=== PATIENT | male | born 1960 ===

== ENCOUNTER 2024-07-20 12:02 | Inpatient (IN) | payer OTHER, SELFPAY ==
--- NOTE | ~2024-07-20 | CT_ITS ---
EXAMINATION: CT HEAD WITHOUT CONTRAST CLINICAL INFORMATION: od ?ams COMPARISON: None available. TECHNIQUE: Contiguous axial imaging was performed from the skull base to vertex without intravenous administration of contrast. This CT examination was performed using dose optimization techniques as appropriate, variously including the following: *Automated exposure control *Adjustment of mA and/or kV according to patient size (this includes techniques or standardized protocols for targeted exams where dose is matched to indication/reason for exam; i.e. extremities or head) *Use of iterative reconstruction technique DLP: 647 mGy-cm FINDINGS: No acute intracranial hemorrhage, mass effect, midline shift, hydrocephalus or herniation. Bilateral multifocal patchy and confluent deep periventricular white matter deep white matter and subcortical white matter hypodensities involving mostly the supratentorial compartment. Prominence of the extra-axial CSF spaces cerebral sulci and ventricles involving mostly the bifrontal bitemporal poles. Posterior cranial fossa contents demonstrated no acute hemorrhage or mass effect. Sellar/suprasellar region demonstrated no gross masses. Old traumatic deformity, left lamina preparation resulting in herniated extraconal fat without tethered extraocular muscle. Old traumatic deformities, nasal bones. Mucosal thickening, right maxillary sinus. Tympanic cavities and mastoid air cells are aerated. Probable prior medial right maxillary surgery. CT/CT head/brain wo IV con IMPRESSION: No acute intracranial hemorrhage. White matter disease. Bifrontal, bitemporal lobes atrophy. Electronically signed by: Humza Williamson MD 07/20/2024 03:32 PM EDT
--- NOTE | ~2024-07-20 | XR_ITS ---
CLINICAL HISTORY: Leukocytosis and fever 1 view chest x-ray Comparison: None Findings: Asymmetrically increased airspace opacity in the left lung. Bilateral interstitial coarsening and basilar congestion. Multiple remote right posterior rib fractures with associated pleural thickening/scarring. No pleural effusion or pneumothorax. IMPRESSION: 1. Bilateral interstitial and airspace opacities, more pronounced on the left. Findings may reflect bronchitis or potentially atypical bilateral bronchopneumonia. This document has been electronically signed by: Rogelio Díaz MD on 07/24/2024 20:24:49
--- NOTE | ~2024-07-20 | XR_ITS ---
EXAMINATION: XR FEMUR 2 VIEWS RIGHT HISTORY: wound COMPARISON: There are no prior studies available for comparison. FINDINGS: AP and lateral views of the right femur are submitted. Osseous mineralization is normal. There is no fracture or dislocation. The joint spaces are preserved. There are metallic coils in the soft tissues of the posteromedial thigh with surrounding soft tissue gas. XR/XR femur RT 2V IMPRESSION: Metallic coils in the soft tissues of the posteromedial thigh with surrounding soft tissue gas. This does not have the typical appearance of embolization coils, and may represent a foreign body. Clinical correlation is recommended. Electronically signed by: Greg Emmanuel MD 07/20/2024 02:02 PM EDT
[2024-07-20 12:24] VITALS: BP 126/80; PULSE 105; O2SAT 100
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
--- NOTE | 2024-07-20 12:39 | ECG_ITS ---
Test Reason : OVERDOSE Blood Pressure : */* mmHG Vent. Rate : 104 BPM Atrial Rate : 104 BPM P-R Int : 150 ms QRS Dur : 84 ms QT Int : 334 ms P-R-T Axes : 19 -28 -13 degrees QTcB Int : 439 ms Sinus tachycardia Inferior infarct , age undetermined Abnormal ECG No previous ECGs available Referred By: Shanna Herrera Electronically Signed By: GURVINDER WEAVER MD
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
[2024-07-20 12:42] VITALS: BP 124/53; PULSE 88; RESP 20; O2SAT 95; BMI 43.0
[2024-07-20 13:12] VITALS: TEMP 37.2
--- NOTE | 2024-07-20 13:26 | PC.NURSE ---
pt refusing blood work, tripp higginbotham
[2024-07-20 14:08] LABS: MANUAL DIFF FLAG NO
[2024-07-20 14:14] LABS: Basophils Percent Auto 0.3 % (0-2); Eosinophils Absolute Auto 0.1 X10*3/uL (0.0-0.4); Eosinophils Percent Auto 1.4 % (0-4); Hematocrit 30.5 % (42.0-52.0); Hemoglobin 9.7 g/dl (14.0-18.0); Imm Gran Abs Auto 0.05 X10*3/uL (0.00-0.03); Imm Gran Pct Auto 0.6 % (0.0-0.4); Lymphocytes Absolute Auto 1.3 X10*3/uL (1.2-4.9); Lymphocytes Percent Auto 17.1 % (20-40); Mean Corpuscular HGB Conc 31.8 g/dl (31.0-36.0); Mean Corpuscular Hemoglobin 26.7 pg (27.0-33.0); Mean Platelet Volume 9.7 fL (9.4-12.4); Monocytes Absolute Auto 0.6 X10*3/uL (0.1-1.2); Monocytes Percent Auto 7.1 % (2-11); Neutrophils Absolute Auto 5.7 x10*3/uL (2.0-8.3); Neutrophils Percent Auto 73.5 % (45-73); Platelet Count 283 X10*3/uL (160-400); Red Blood Count 3.63 X10*6/uL (4.60-5.80); Red Cell Distribution Width 15.4 % (11.0-16.0); White Blood Count 7.7 X10*3/uL (4.8-10.8)
--- NOTE | 2024-07-20 14:16 | MHC.CARE ---
T/w attempted to reach out to [facility] crisis, Usha reports patient was not seen by the crisis team however was just discharged from the medical floor 07/16/2024. She reports that a daughter is listed as an emergency contact, Emmy, . Attempted to call Emmy, outgoing message on says phone not taking incoming calls at this time.
[2024-07-20 14:23] VITALS: BP 103/67; PULSE 111; RESP 18; TEMP 37.4; O2SAT 99
[2024-07-20 14:28] LABS: Alanine Aminotransferase 16 U/L (0-40); Albumin Level 3.9 g/dL (3.5-5.0); Alkaline Phosphatase 57 U/L (39-117); Anion Gap 12 (12-20); Aspartate Amino Transferase 25 U/L (5-37); Bilirubin Direct 0.4 mg/dL (0.0-0.5); Blood Urea Nitrogen 19 mg/dL (9-16); Calcium 9.6 mg/dL (8.4-10.2); Carbon Dioxide 23 mmol/L (22-29); Chloride 105 mmol/L (96-108); Creatinine Clr Calc Pharmacy 71.8; Estimated Glomerular Filt Rate > 60; Ethanol < 10 mg/dL; Glucose Random 119 mg/dL (60-115); Magnesium 1.5 mg/dL (1.6-2.6); Potassium 3.2 mmol/L (3.3-5.1); Sodium 137 mmol/L (135-145); Total Protein 7.3 g/dL (6.5-8.0)
--- NOTE | 2024-07-20 14:37 | MHC.CARE ---
Per [facility], pt's insurance, he is on a [facility] for [facility] out of the [place] area. She reports pt has hx of etoh dependency.
[2024-07-20 14:50] LABS: Influenza A PCR NEGATIVE (Negative); Influenza B PCR NEGATIVE (Negative); Resp Syncy Virus RNA Qual PCR NEGATIVE (Negative); SARS COV2 PCR INHOUSE NEGATIVE (Negative)
--- OUTSIDE RECORDS SUMMARY | 2024-07-20 15:09 | XMS_ITS | Clinical Summary ---
Author Organization [facility] Address [address] [place] [id number] Care Team Providers Care Carbide Powder Processor Name Role Phone Greg Llanos MD Primary Care Provider Allergies Active Allergy Reactions Criticality Noted Date Comments Cefepime Hives Medium 02/24/2020 Lamotrigine Unknown,Anaphylaxis, Hives High 01/07/2011 Pt got very ill neutropenia Other reaction(s): Other (See Comments), Unknown Pt got very ill neutropenia Sulfa (Sulfonamide Antibiotics) Swelling High 04/08/2010 Other reaction(s): Unknown Converted from Generic Allergy: Sulfa Converted from Generic Allergy: Sulfa Medications albuterol HFA (VENTOLIN; PROAIR; PROVENTIL) 90 mcg/actuation aerosol inhaler Inhale 2 puffs every 6 hours as needed for wheezing. 1 each 12/05/19 Active hydrocortisone (ANUSOL-HC) 25 mg suppository Insert 1 suppository (25 mg total) into the rectum 2 times a day as needed for hemorrhoids. 30 suppository 12/05/19 Active metoprolol ER (TOPROL-XL) 25 MG 24 hr tablet Take 1 tablet (25 mg total) by mouth every morning & every evening. 60 tablet 12/05/19 Active Multivitamin with Minerals tablet Take 1 tablet by mouth daily. 30 tablet 12/06/19 Active thiamine 100 MG tablet Take 1 tablet (100 mg total) by mouth daily. 30 tablet 12/06/19 Active folic acid (FOLVITE) 1 MG tablet Take 1 tablet (1 mg total) by mouth daily. 30 tablet 12/06/19 Active magnesium oxide (MAG-OX) 400 mg (241.3 mg magnesium) tablet Take 2 tablets (800 mg total) by mouth 3 times a day. 180 tablet 12/05/19 Active docusate sodium (COLACE) 100 MG capsule Take 1 capsule (100 mg total) by mouth 2 times a day as needed for constipation. 60 capsule 12/06/19 Active Active Problems Problem Noted Date Diagnosed Date Hematochezia 11/29/2020 Chest pain 11/29/2020 Polysubstance abuse 11/29/2020 Homelessness 11/29/2020 Alcohol abuse with withdrawal 11/29/2020 Alcohol dependence with withdrawal 06/27/2020 Depressive disorder 01/19/2012 Overview (11/29/2020): Depression Family History Medical History Relation Comments Lupus Sister Relation Status Comments Sister Social History Tobacco Use Types Packs/Day Years Used Date Smoking Tobacco: Every Day Cigarettes Smokeless Tobacco: Never Alcohol Use Standard Drinks/Week Comments Yes 0 (1 standard drink = 0.6 oz pur e alcohol) Sex and Gender Information Value Date Recorded Sex Assigned at Male 05/07/2022 12:38 AM EDT Legal Sex Male 8:23 AM EST Gender Identity Male 05/07/2022 12:38 AM EDT Sexual Orientation Not on file Last Filed Vital Signs Vital Sign Reading Time Taken Comments Blood Pressure 93/55 05/06/2022 11:59 PM EDT Pulse 99 05/07/2022 8:54 AM EDT Temperature 36.7 ??C (98 ??F) 05/07/2022 8:54 AM EDT Respiratory Rate 16 05/07/2022 8:54 AM EDT Oxygen Saturation 96% 05/07/2022 8:54 AM EDT Inhaled Oxygen Concentration - - Weight 98.9 kg (218 lb) 11/29/2020 2:49 PM EDT Height 170.2 cm (5' 7 ) 11/29/2020 2:48 PM EDT Body Mass Index 34.14 11/29/2020 2:48 PM EDT Plan of Treatment Health Maintenance Due Date Last Done Comments Blood Pressure 1960 PSA 1958 Prostate Cancer Screening 1960 SDM [address] Colonography 04/22/2003 FIT 04/22/2003 FOBT 04/22/2003 Multitarget Stool DNA (Cologuard) 04/22/2003 Sigmoidoscopy 04/22/2003 Zoster Vaccine (1 of 2) 2008 Pneumococcal Vaccine (2 of 2 - PCV) 02/09/2010 02/09/2009 Lipid Panel 07/25/2021 07/25/2020, 12, 12/18/2019 Colonoscopy 06/18/2022 06/18/2017 Colorectal Cancer Screening 06/18/2022 COVID-19 Vaccine ( season) 2023 12/20/2020 Influenza Vaccine (Season Ended) 2024 11/01/2020, 03/25/2020, 11/27/2018, Additional history exists DTaP,Tdap,and Td Vaccines (3 - Td or Tdap) 12/08/2028 12/08/2018, 06/01/2017 Hepatitis C Screening Completed 05/14/2018 Meningococcal B Vaccines Aged Out No longer eligible based on patient's age to complete this topic Meningococcal Vaccines Aged Out No lo nger eligible based on patient's age to complete this topic Insurance , [place] [address] [facility] Advance Directives * Full Code (Latest Code Status on File) Date Activated Date Inactivated Comments 11/30/2020 12:57 AM Care Teams Carbide Powder Processor Relationship Specialty Start Date End Date Greg Llanos MD PCP - General 11/29/20
--- NOTE | 2024-07-20 15:22 | PC.NURSE ---
Addendum entered by Taylor Campos RN 07/20/24 15:22: correction *Risa Original Note: update given to poison control to silas.
--- NOTE | 2024-07-20 15:27 | PC.NURSE ---
at 1255, poison control contacted at [phone], spoke to bo, report given on patient ingestion, poison control recomendation: EKG Q2H x3, tele monitoring, IV fluids/pressors PRN, blood test to include ETOH, cmp, cbc, LFTs, tylenol level, aspirin level, urine toxicology. Shanna JADE made aware
[2024-07-20] MEDS: Potassium Chloride ER 20 MEQ TAB.ER.PRT 60 MEQ PO (15:35)
[2024-07-20] MEDS: Magnesium Oxide 400 MG TABLET 800 MG PO (15:35)
--- NOTE | 2024-07-20 15:53 | ECG_ITS ---
Test Reason : OVERDOSE Blood Pressure : */* mmHG Vent. Rate : 108 BPM Atrial Rate : 108 BPM P-R Int : 148 ms QRS Dur : 86 ms QT Int : 336 ms P-R-T Axes : 18 -23 20 degrees QTcB Int : 450 [address] N[address] abnormality Abnormal ECG When compared with ECG of 20-Jul-2024 12:57, No significant change was found Referred By: Shanna Herrera Electronically Signed By: GURVINDER WEAVER MD
[2024-07-20 16:38] VITALS: BP 112/64; PULSE 101; RESP 14; TEMP 36.8; O2SAT 96
[2024-07-20 17:02] LABS: Acetaminophen LAB < 3 mcg/mL (<30); Salicylate < 5.0 mg/dL (15-30)
--- NOTE | 2024-07-20 17:47 | ECG_ITS ---
Test Reason : OVERDOSE Blood Pressure : */* mmHG Vent. Rate : 108 BPM Atrial Rate : 108 BPM P-R Int : 150 ms QRS Dur : 84 ms QT Int : 336 ms P-R-T Axes : 34 -23 10 degrees QTcB Int : 450 ms Sinus tachycardia Inferior infarct , age undetermined Abnormal ECG When compared with ECG of 20-Jul-2024 15:57, No significant change was found Referred By: Shanna Herrera Electronically Signed By: GURVINDER WEAVER MD
--- NOTE | 2024-07-20 19:47 | ECG_ITS ---
Test Reason : OVERDOSE Blood Pressure : */* mmHG Vent. Rate : 100 BPM Atrial Rate : 100 BPM P-R Int : 146 ms QRS Dur : 84 ms QT Int : 332 ms P-R-T Axes : 28 -22 5 degrees QTcB Int : 428 ms Normal sinus rhythm Normal ECG When compared with ECG of 20-Jul-2024 18:03, No significant change was found Referred By: Shanna Herrera Electronically Signed By: GURVINDER WEAVER MD
[2024-07-20 20:20] LABS: Appearance Urine Cloudy; Color Urine Dark Yellow; Glucose Urine UA Negative (Negative); Leukocyte Esterase Urine Trace (Negative); Nitrite Urine Negative (Negative); PH 5.5 (5.0-9.0); Specific Gravity - Urine >= 1.030 (1.005-1.025); UMIC TRIGGER UACC YES; Urine Blood Negative (Negative); Urine Ketones Trace mg/dL (Negative); Urine Protein 30 (1+) mg/dL (Neg-Trace)
[2024-07-20 20:25] VITALS: BP 114/66; PULSE 99; RESP 20; TEMP 37.2; O2SAT 97
[2024-07-20 20:29] LABS: Amphetamine Screen Urine Not Detected (Not Detect); Barbiturates, Urine POSITIVE (Not Detect); Benzodiazepines Screen Urine POSITIVE (Not Detect); Buprenorphine Scr Not Detected (Not Detect); Cannabinoid Screen Urine Not Detected (Not Detect); Cocaine Screen Urine POSITIVE (Not Detect); Fentanyl, urine POSITIVE (Not Detect); Methadone Screen, Urine Not Detected (Not Detect); Opiate Screen Urine Not Detected (Not Detect); Oxycodone Screen Urine Not Detected (Not Detect); Phencyclidine Screen Urine Not Detected (Not Detect)
[2024-07-20 20:32] LABS: Bacteria Urine None Seen (None Seen); Hyaline Casts Urine 0-2 /LPF (0-2); RBC Urine 0-2 /HPF (0-2); Squamous Epithelial Cell Urine 0-2 /HPF (0-2); WBC Urine 0-5 /HPF (0-5)
[2024-07-21 02:32] VITALS: RESP 18
[2024-07-21 05:16] VITALS: BP 122/71; PULSE 83; RESP 20; TEMP 36.8; O2SAT 97
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
[2024-07-21 08:54] VITALS: BP 116/53; PULSE 95; RESP 16; TEMP 37; O2SAT 97
--- NOTE | 2024-07-21 10:11 | MHC.EDTECH ---
Patient refusing labs at this time. Rn aware.
--- NOTE | 2024-07-21 11:30 | PC.NURSE ---
Pt transferred from ED 6 to 2. Pt ambulates with walker, steady gait unassisted, alert- unable to determine orientation status d/t pt refusing to respond to questions by this RN. Pt resting quietly in bed, respirations even and unlabored, no increased wob/sob noted, appears in no distress. Pt refusing to let this RN assess him/answer questions. All needs met at this time.
[2024-07-21 14:22] VITALS: BP 124/54; PULSE 89; RESP 16; TEMP 36.8; O2SAT 99
--- NOTE | 2024-07-21 14:22 | PC.NURSE ---
Pt offered Nicotine patch---Pt declined. Patch returned to [employer] machine in secure designated return bin.
--- NOTE | 2024-07-21 14:53 | PC.NURSE ---
Pt refusing labs- Admissions made aware. Pt irritable/agitated with staff, raising voice. Pt educated on need for labs to be drawn- pt continues to refuse.
--- NOTE | 2024-07-21 14:58 | MHC.EDTECH ---
Patient refusing labs at this time. This tech attempted to explain the importance of testing. Patients response was I don't have any blood. RN aware of patients refusal.
--- NOTE | 2024-07-21 15:35 | PHA.MEDREC ---
Addendum entered by Blu Higgins RPh 07/21/24 19:28: Patient was admitted at [facility] from 06/24/24 to 07/15/24. While at [facility], he was given Eliquis 5 mg and discharged with it along with other meds. Spoke to Dr. Perez who wanted those discharged meds to be added into patient's home med list as well. MED REC REVIEWED. Addendum entered by Estelle Chavez 07/21/24 19:16: Added more medications from [facility] per provider request. Original Note: Pharmacy Consult ? Medication Reconciliation Pharmacy has completed the medication reconciliation. Patient Agitated and not answering questions. [facility].
[2024-07-21 15:49] LABS: MANUAL DIFF FLAG NO
[2024-07-21 16:02] LABS: Basophils Percent Auto 0.3 % (0-2); Eosinophils Absolute Auto 0.1 X10*3/uL (0.0-0.4); Eosinophils Percent Auto 1.2 % (0-4); Hematocrit 31.2 % (42.0-52.0); Hemoglobin 10.1 g/dl (14.0-18.0); Imm Gran Abs Auto 0.07 X10*3/uL (0.00-0.03); Imm Gran Pct Auto 0.7 % (0.0-0.4); Lymphocytes Absolute Auto 1.7 X10*3/uL (1.2-4.9); Lymphocytes Percent Auto 15.8 % (20-40); Mean Corpuscular HGB Conc 32.4 g/dl (31.0-36.0); Mean Corpuscular Hemoglobin 27.2 pg (27.0-33.0); Mean Corpuscular Volume 83.9 fL (80.0-98.0); Mean Platelet Volume 9.5 fL (9.4-12.4); Monocytes Absolute Auto 0.7 X10*3/uL (0.1-1.2); Monocytes Percent Auto 6.5 % (2-11); Neutrophils Absolute Auto 8.1 x10*3/uL (2.0-8.3); Neutrophils Percent Auto 75.5 % (45-73); Platelet Count 294 X10*3/uL (160-400); Red Blood Count 3.72 X10*6/uL (4.60-5.80); Red Cell Distribution Width 15.7 % (11.0-16.0); White Blood Count 10.7 X10*3/uL (4.8-10.8)
[2024-07-21 16:04] LABS: Alanine Aminotransferase 17 U/L (0-40); Albumin Level 3.9 g/dL (3.5-5.0); Alkaline Phosphatase 52 U/L (39-117); Anion Gap 13 (12-20); Aspartate Amino Transferase 22 U/L (5-37); Bilirubin Total 0.6 mg/dL (0.0-1.0); Blood Urea Nitrogen 17 mg/dL (9-16); Calcium 9.5 mg/dL (8.4-10.2); Carbon Dioxide 22 mmol/L (22-29); Chloride 108 mmol/L (96-108); Creatinine Clr Calc Pharmacy 75.6; Estimated Glomerular Filt Rate > 60; Glucose Random 113 mg/dL (60-115); Potassium 3.8 mmol/L (3.3-5.1); Sodium 139 mmol/L (135-145); Total Protein 7.2 g/dL (6.5-8.0)
[2024-07-21 17:01] LABS: Magnesium 1.5 mg/dL (1.6-2.6)
[2024-07-21 20:09] VITALS: BP 142/50; PULSE 82; RESP 18; TEMP 37; O2SAT 100
--- NOTE | 2024-07-21 20:29 | PC.NURSE ---
pt initially seated in communal area, thereafter seeming to like frequent staff support appears in no distress, seemingly soon transitioning to inpatient psych unit.
[2024-07-21 22:25] VITALS: BP 152/77; PULSE 91; TEMP 37.2; O2SAT 97
[2024-07-21] MEDS: Magnesium Oxide 400 MG TABLET PO (23:25)
[2024-07-21] MEDS: Gabapentin 300 MG CAPSULE 900 MG PO (23:26)
[2024-07-21] MEDS: Tamsulosin HCL 0.4 MG CAPSULE PO (23:27)
[2024-07-21] MEDS: Docusate Sodium 100 MG CAPSULE PO (23:27)
[2024-07-21] MEDS: Apixaban 5 MG TABLET PO (23:29)
[2024-07-21] MEDS: Cyclobenzaprine HCl 10 MG TABLET PO (23:29)
[2024-07-21] MEDS: diphenhydrAMINE HCL 25 MG CAPSULE 50 MG PO (23:52)
[2024-07-21] MEDS: Ibuprofen 600 MG TABLET PO (23:52)
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
[2024-07-22 08:00] VITALS: BP 133/59; PULSE 77; RESP 16; TEMP 37.2; O2SAT 98
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
[2024-07-22] MEDS: Gabapentin 300 MG CAPSULE 900 MG PO ×3 (12:06→21:16)
[2024-07-22] MEDS: Sertraline HCL 25 MG TABLET PO (12:06)
[2024-07-22] MEDS: NaPROXEN 500 MG TABLET PO ×2 (12:06→21:18)
[2024-07-22] MEDS: Aspirin 81 MG TAB.CHEW PO (12:06)
[2024-07-22] MEDS: Magnesium Oxide 400 MG TABLET PO ×2 (12:06→21:19)
[2024-07-22] MEDS: Loratadine 10 MG TABLET PO (12:06)
[2024-07-22] MEDS: Omeprazole 20 MG CAPSULE.DR PO (12:07)
[2024-07-22] MEDS: DULoxetine HCl 20 MG CAPSULE.DR 40 MG PO (12:07)
[2024-07-22] MEDS: Multivitamin TABLET 1 TAB PO (12:07)
[2024-07-22] MEDS: Docusate Sodium 100 MG CAPSULE PO ×2 (12:07→21:21)
[2024-07-22] MEDS: Hydroxychloroquine Sulfate 200 MG TABLET PO ×2 (12:07→21:20)
[2024-07-22] MEDS: Apixaban 5 MG TABLET PO ×2 (12:10→21:19)
[2024-07-22] MEDS: HYDROmorphone HCl 2 MG TABLET 4 MG PO ×2 (12:11→18:03)
[2024-07-22] MEDS: Tiotropium Bromide 2.5 mcg 1 PUFF/2.5 MCG MIST.INHAL 2 PUFF INHALE (12:12)
[2024-07-22] MEDS: Fluticasone Propionate Nasal 16 GM SPRAY 2 SPRAY NOSTRIL-B (12:12)
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
[2024-07-22] MEDS: Ibuprofen 600 MG TABLET PO (15:57)
--- NOTE | 2024-07-22 19:07 | PC.NURSE ---
Right thigh dressing removed as it was saturated with serous sanguinous fluid. Wound is clean, not pink or reddened. Wound cleansed with NS, covered with wet fluff, dry fluff and an DSD. Roby tolerated the procedure well.
[2024-07-22] MEDS: Acetaminophen 325 MG TABLET 650 MG PO (19:30)
[2024-07-22 20:00] VITALS: BP 152/77; PULSE 90; RESP 18; TEMP 37.1; O2SAT 96
[2024-07-22] MEDS: Cyclobenzaprine HCl 10 MG TABLET PO (21:19)
[2024-07-22] MEDS: Tamsulosin HCL 0.4 MG CAPSULE PO (21:20)
[2024-07-23] MEDS: HYDROmorphone HCl 2 MG TABLET 4 MG PO ×4 (00:10→21:07)
[2024-07-23] MEDS: Ibuprofen 600 MG TABLET PO ×2 (00:11→21:08)
[2024-07-23] MEDS: Acetaminophen 325 MG TABLET 650 MG PO ×2 (02:59→13:55)
[2024-07-23] MEDS: Omeprazole 20 MG CAPSULE.DR PO (06:16)
--- NOTE | 2024-07-23 06:18 | PC.NURSE ---
Pt right thigh wound was draining fluid but he declined that RN should clean and applied dressing. He states I will wait for day nurse to come and do it b/c she dressed the very well yesterday .
[2024-07-23 08:41] VITALS: BP 118/54; PULSE 87; RESP 18; TEMP 37.1; O2SAT 98
[2024-07-23] MEDS: Tiotropium Bromide 2.5 mcg 1 PUFF/2.5 MCG MIST.INHAL 2 PUFF INHALE (08:52)
[2024-07-23] MEDS: Gabapentin 300 MG CAPSULE 900 MG PO ×3 (08:53→21:05)
[2024-07-23] MEDS: DULoxetine HCl 20 MG CAPSULE.DR 40 MG PO (08:54)
[2024-07-23] MEDS: Hydroxychloroquine Sulfate 200 MG TABLET PO ×2 (08:54→21:05)
[2024-07-23] MEDS: Loratadine 10 MG TABLET PO (08:54)
[2024-07-23] MEDS: Docusate Sodium 100 MG CAPSULE PO ×2 (08:54→21:04)
[2024-07-23] MEDS: Aspirin 81 MG TAB.CHEW PO (08:54)
[2024-07-23] MEDS: Multivitamin TABLET 1 TAB PO (08:54)
[2024-07-23] MEDS: Sertraline HCL 25 MG TABLET PO (08:54)
[2024-07-23] MEDS: Magnesium Oxide 400 MG TABLET PO ×2 (08:54→21:05)
[2024-07-23] MEDS: Apixaban 5 MG TABLET PO ×2 (08:54→21:06)
[2024-07-23] MEDS: NaPROXEN 500 MG TABLET PO ×2 (08:54→21:05)
[2024-07-23 09:11] LABS: Estimated Average Glucose 100 mg/dL; Hemoglobin A1c % 5.1 % (<6.0)
[2024-07-23 09:27] LABS: Cholesterol 144 mg/dL (<200); HDL Cholesterol 38 mg/dL (>40); LDL Cholesterol Calculated 68 mg/dL (<100); Magnesium 1.5 mg/dL (1.6-2.6); Triglycerides 191 mg/dL (<150)
[2024-07-23 09:45] LABS: Free T4 (Free Thyroxine) 1.41 ng/dL (0.71-1.85); Thyroid Stimulating Hormone 1.54 uIU/mL (0.32-4.0)
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
[2024-07-23 09:57] LABS: Folate 8.9 ng/mL (> or = 4.0); Vitamin B12 454 pg/mL (200-900)
[2024-07-23 20:00] VITALS: BP 127/72; PULSE 96; RESP 16; TEMP 37.1; O2SAT 98
[2024-07-23] MEDS: Tamsulosin HCL 0.4 MG CAPSULE PO (21:04)
[2024-07-23] MEDS: Cyclobenzaprine HCl 10 MG TABLET PO (21:05)
[2024-07-23 21:06] VITALS: BP 127/72
[2024-07-23] MEDS: cloNIDine HCL 0.1 MG TABLET PO (21:06)
[2024-07-24] MEDS: Omeprazole 20 MG CAPSULE.DR PO (06:00)
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
[2024-07-24 09:07] VITALS: BP 121/56; PULSE 92; RESP 18; TEMP 37.1; O2SAT 96
[2024-07-24] MEDS: HYDROmorphone HCl 2 MG TABLET 4 MG PO ×2 (09:22→21:03)
[2024-07-24] MEDS: Apixaban 5 MG TABLET PO ×2 (09:22→21:03)
[2024-07-24] MEDS: DULoxetine HCl 20 MG CAPSULE.DR 40 MG PO (09:22)
[2024-07-24] MEDS: NaPROXEN 500 MG TABLET PO ×2 (09:22→21:03)
[2024-07-24] MEDS: Hydroxychloroquine Sulfate 200 MG TABLET PO ×2 (09:22→21:03)
[2024-07-24] MEDS: Aspirin 81 MG TAB.CHEW PO (09:22)
[2024-07-24] MEDS: Tiotropium Bromide 2.5 mcg 1 PUFF/2.5 MCG MIST.INHAL 2 PUFF INHALE (09:22)
[2024-07-24] MEDS: Sertraline HCL 25 MG TABLET PO (09:22)
[2024-07-24] MEDS: Docusate Sodium 100 MG CAPSULE PO ×2 (09:22→21:03)
[2024-07-24] MEDS: Multivitamin TABLET 1 TAB PO (09:22)
[2024-07-24] MEDS: Loratadine 10 MG TABLET PO (09:23)
[2024-07-24] MEDS: Gabapentin 300 MG CAPSULE 900 MG PO ×3 (09:23→21:04)
[2024-07-24] MEDS: Magnesium Oxide 400 MG TABLET PO ×2 (09:23→21:02)
[2024-07-24 15:51] VITALS: BP 117/64; PULSE 95; RESP 16; TEMP 37.6; O2SAT 95
[2024-07-24 16:21] LABS: MANUAL DIFF FLAG NO
[2024-07-24 16:22] LABS: Basophils Percent Auto 0.1 % (0-2); Eosinophils Absolute Auto 0.2 X10*3/uL (0.0-0.4); Eosinophils Percent Auto 1.4 % (0-4); Hemoglobin 9.6 g/dl (14.0-18.0); Imm Gran Abs Auto 0.09 X10*3/uL (0.00-0.03); Imm Gran Pct Auto 0.7 % (0.0-0.4); Lymphocytes Absolute Auto 1.6 X10*3/uL (1.2-4.9); Lymphocytes Percent Auto 12.6 % (20-40); Mean Corpuscular Hemoglobin 26.9 pg (27.0-33.0); Mean Corpuscular Volume 86.8 fL (80.0-98.0); Mean Platelet Volume 10.7 fL (9.4-12.4); Monocytes Absolute Auto 0.5 X10*3/uL (0.1-1.2); Monocytes Percent Auto 4.1 % (2-11); Neutrophils Percent Auto 81.1 % (45-73); Platelet Count 260 X10*3/uL (160-400); Red Blood Count 3.57 X10*6/uL (4.60-5.80); Red Cell Distribution Width 16.1 % (11.0-16.0); White Blood Count 12.3 X10*3/uL (4.8-10.8)
[2024-07-24 18:06] VITALS: BP 120/66; PULSE 100; TEMP 37.1; O2SAT 98
[2024-07-24 19:13] LABS: VBG Base Excess 1.3 mmol/L; VBG HCO3 25 mmol/L (22-26); VBG pCO2 38 mmHg; VBG pH 7.42 (7.32-7.43); VBG pO2 75 mmHg
[2024-07-24 19:14] LABS: Venous Blood Gas Refer to POC result
[2024-07-24 19:16] LABS: Ammonia 48 umol/L (13-55)
[2024-07-24 19:23] LABS: Alanine Aminotransferase 14 U/L (0-40); Albumin Level 3.3 g/dL (3.5-5.0); Alkaline Phosphatase 53 U/L (39-117); Anion Gap 12 (12-20); Aspartate Amino Transferase 16 U/L (5-37); Bilirubin Total 0.4 mg/dL (0.0-1.0); Blood Urea Nitrogen 19 mg/dL (9-16); Carbon Dioxide 22 mmol/L (22-29); Chloride 108 mmol/L (96-108); Creatinine Clr Calc Pharmacy 97.1; Estimated Glomerular Filt Rate > 60; Glucose Random 104 mg/dL (60-115); Potassium 4.4 mmol/L (3.3-5.1); Sodium 138 mmol/L (135-145); Total Protein 6.1 g/dL (6.5-8.0)
[2024-07-24 19:24] LABS: Lactic Acid 1.3 mmol/L (0.5-2.0)
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
[2024-07-24] MEDS: Tamsulosin HCL 0.4 MG CAPSULE PO (21:02)
[2024-07-24] MEDS: Cyclobenzaprine HCl 10 MG TABLET PO (21:03)
[2024-07-24] MEDS: QUEtiapine Fumarate 50 MG TABLET PO (21:03)
[2024-07-24] MEDS: Doxycycline Monohydrate 100 MG CAPSULE PO (22:22)
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
[2024-07-25] MEDS: Gabapentin 300 MG CAPSULE 900 MG PO ×3 (09:56→22:21)
[2024-07-25] MEDS: Docusate Sodium 100 MG CAPSULE PO ×2 (09:56→22:22)
[2024-07-25] MEDS: DULoxetine HCl 20 MG CAPSULE.DR 40 MG PO (09:56)
[2024-07-25] MEDS: HYDROmorphone HCl 2 MG TABLET PO ×3 (09:57→22:22)
[2024-07-25] MEDS: Magnesium Oxide 400 MG TABLET PO ×2 (09:57→22:23)
[2024-07-25] MEDS: Omeprazole 20 MG CAPSULE.DR PO (09:57)
[2024-07-25] MEDS: Doxycycline Monohydrate 100 MG CAPSULE PO ×2 (09:57→22:22)
[2024-07-25] MEDS: Multivitamin TABLET 1 TAB PO (09:57)
[2024-07-25] MEDS: Sertraline HCL 25 MG TABLET PO (09:57)
[2024-07-25] MEDS: Aspirin 81 MG TAB.CHEW PO (09:58)
[2024-07-25] MEDS: Tiotropium Bromide 2.5 mcg 1 PUFF/2.5 MCG MIST.INHAL 2 PUFF INHALE (09:58)
[2024-07-25] MEDS: Hydroxychloroquine Sulfate 200 MG TABLET PO ×2 (09:58→22:23)
[2024-07-25] MEDS: Apixaban 5 MG TABLET PO ×2 (09:58→22:26)
[2024-07-25] MEDS: Loratadine 10 MG TABLET PO (09:58)
[2024-07-25] MEDS: Fluticasone Propionate Nasal 16 GM SPRAY 2 SPRAY NOSTRIL-B (09:59)
[2024-07-25] MEDS: Acetaminophen 325 MG TABLET 650 MG PO (09:59)
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
[2024-07-25 10:31] LABS: Adenovirus PCR Not Detected (Not Detect.); Bordetella parapertussis PCR Not Detected (Not Detect.); Bordetella pertussis PCR Not Detected (Not Detect.); Chlamydia pneumoniae PCR Not Detected (Not Detect.); Coronavirus 229E PCR Not Detected (Not Detect.); Coronavirus HKU1 PCR Not Detected (Not Detect.); Coronavirus NL63 PCR Not Detected (Not Detect.); Coronavirus OC43 PCR Not Detected (Not Detect.); Human metapneumovirus PCR Not Detected (Not Detect.); Influenza A PCR Not Detected (Not Detect.); Influenza B PCR Not Detected (Not Detect.); Mycoplasma pneumoniae PCR Not Detected (Not Detect.); Parainfluenza 1 PCR Not Detected (Not Detect.); Parainfluenza 2 PCR Not Detected (Not Detect.); Parainfluenza 3 PCR Not Detected (Not Detect.); Parainfluenza 4 PCR Not Detected (Not Detect.); RSV PCR Not Detected (Not Detect.); Rhino/Enterovirus PCR Not Detected (Not Detect.)
[2024-07-25 11:51] LABS: Influenza A H1 PCR Not Detected (Not Detect.); Influenza A H1-2009 PCR Not Detected (Not Detect.); Influenza A H3 PCR Not Detected (Not Detect.); SARS-CoV-2 PCR Not Detected (Not Detect.)
[2024-07-25 13:30] LABS: MANUAL DIFF FLAG NO
[2024-07-25 13:37] LABS: Basophils Percent Auto 0.3 % (0-2); Eosinophils Absolute Auto 0.1 X10*3/uL (0.0-0.4); Eosinophils Percent Auto 1.6 % (0-4); Hematocrit 32.6 % (42.0-52.0); Hemoglobin 9.9 g/dl (14.0-18.0); Imm Gran Abs Auto 0.07 X10*3/uL (0.00-0.03); Imm Gran Pct Auto 0.9 % (0.0-0.4); Lymphocytes Absolute Auto 1.5 X10*3/uL (1.2-4.9); Lymphocytes Percent Auto 19.6 % (20-40); Mean Corpuscular HGB Conc 30.4 g/dl (31.0-36.0); Mean Corpuscular Volume 89.1 fL (80.0-98.0); Mean Platelet Volume 10.3 fL (9.4-12.4); Monocytes Absolute Auto 0.6 X10*3/uL (0.1-1.2); Monocytes Percent Auto 7.5 % (2-11); Neutrophils Absolute Auto 5.4 x10*3/uL (2.0-8.3); Neutrophils Percent Auto 70.1 % (45-73); Platelet Count 249 X10*3/uL (160-400); Red Blood Count 3.66 X10*6/uL (4.60-5.80); Red Cell Distribution Width 16.2 % (11.0-16.0); White Blood Count 7.7 X10*3/uL (4.8-10.8)
[2024-07-25 14:09] LABS: Anion Gap 11 (12-20); Blood Urea Nitrogen 17 mg/dL (9-16); Calcium 9.4 mg/dL (8.4-10.2); Carbon Dioxide 27 mmol/L (22-29); Chloride 107 mmol/L (96-108); Creatinine Clr Calc Pharmacy 102.6; Estimated Glomerular Filt Rate > 60; Glucose Random 103 mg/dL (60-115); Potassium 4.4 mmol/L (3.3-5.1); Sodium 141 mmol/L (135-145)
[2024-07-25] MEDS: cefuroxime axetiL 500 MG TABLET PO (16:15)
[2024-07-25 18:00] VITALS: BP 126/61; PULSE 86; RESP 16; TEMP 36.6; O2SAT 99
--- NOTE | 2024-07-25 19:44 | PC.NURSE ---
late entry 1200, Roby was informed that a urine sample was needed. Maybe later , offered again around 1500, maybe later was the answer again.
[2024-07-25] MEDS: QUEtiapine Fumarate 50 MG TABLET PO (22:21)
[2024-07-25] MEDS: Tamsulosin HCL 0.4 MG CAPSULE PO (22:22)
[2024-07-25] MEDS: Cyclobenzaprine HCl 10 MG TABLET PO (22:22)
[2024-07-26 07:55] VITALS: BP 132/70; PULSE 75; RESP 18; TEMP 36.6; O2SAT 97
[2024-07-26] MEDS: Tiotropium Bromide 2.5 mcg 1 PUFF/2.5 MCG MIST.INHAL 2 PUFF INHALE (08:37)
[2024-07-26] MEDS: Gabapentin 300 MG CAPSULE 900 MG PO ×3 (08:38→21:12)
[2024-07-26] MEDS: Hydroxychloroquine Sulfate 200 MG TABLET PO ×2 (08:39→21:13)
[2024-07-26] MEDS: Aspirin 81 MG TAB.CHEW PO (08:39)
[2024-07-26] MEDS: Apixaban 5 MG TABLET PO ×2 (08:39→21:13)
[2024-07-26] MEDS: Docusate Sodium 100 MG CAPSULE PO ×2 (08:39→21:13)
[2024-07-26] MEDS: Loratadine 10 MG TABLET PO (08:39)
[2024-07-26] MEDS: Magnesium Oxide 400 MG TABLET PO ×2 (08:39→21:12)
[2024-07-26] MEDS: Multivitamin TABLET 1 TAB PO (08:39)
[2024-07-26] MEDS: Doxycycline Monohydrate 100 MG CAPSULE PO ×2 (08:39→21:13)
[2024-07-26] MEDS: Sertraline HCL 25 MG TABLET PO (08:40)
[2024-07-26] MEDS: DULoxetine HCl 20 MG CAPSULE.DR 40 MG PO (08:40)
[2024-07-26] MEDS: Omeprazole 20 MG CAPSULE.DR PO (08:40)
[2024-07-26] MEDS: cefuroxime axetiL 500 MG TABLET PO ×2 (08:55→21:13)
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
[2024-07-26 20:00] VITALS: BP 124/80; PULSE 111; TEMP 36.9; O2SAT 99
[2024-07-26] MEDS: Cyclobenzaprine HCl 10 MG TABLET PO (21:12)
[2024-07-26] MEDS: QUEtiapine Fumarate 50 MG TABLET PO (21:13)
[2024-07-26] MEDS: Tamsulosin HCL 0.4 MG CAPSULE PO (21:13)
[2024-07-26] MEDS: HYDROmorphone HCl 2 MG TABLET PO (21:18)
[2024-07-27] MEDS: Omeprazole 20 MG CAPSULE.DR PO (07:18)
[2024-07-27 07:55] VITALS: BP 152/79; PULSE 81; RESP 18; TEMP 36.8; O2SAT 97
[2024-07-27] MEDS: DULoxetine HCl 20 MG CAPSULE.DR 40 MG PO (08:10)
[2024-07-27] MEDS: Apixaban 5 MG TABLET PO ×2 (08:10→21:01)
[2024-07-27] MEDS: Loratadine 10 MG TABLET PO (08:10)
[2024-07-27] MEDS: Gabapentin 300 MG CAPSULE 900 MG PO (08:10)
[2024-07-27] MEDS: Tiotropium Bromide 2.5 mcg 1 PUFF/2.5 MCG MIST.INHAL 2 PUFF INHALE (08:10)
[2024-07-27] MEDS: Multivitamin TABLET 1 TAB PO (08:10)
[2024-07-27] MEDS: Magnesium Oxide 400 MG TABLET PO ×2 (08:10→21:00)
[2024-07-27] MEDS: Hydroxychloroquine Sulfate 200 MG TABLET PO ×2 (08:11→20:59)
[2024-07-27] MEDS: cefuroxime axetiL 500 MG TABLET PO ×2 (08:11→20:59)
[2024-07-27] MEDS: Sertraline HCL 25 MG TABLET PO (08:11)
[2024-07-27] MEDS: Docusate Sodium 100 MG CAPSULE PO ×2 (08:11→21:00)
[2024-07-27] MEDS: Aspirin 81 MG TAB.CHEW PO (08:11)
[2024-07-27] MEDS: Doxycycline Monohydrate 100 MG CAPSULE PO ×2 (08:11→21:00)
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
[2024-07-27] MEDS: HYDROmorphone HCl 2 MG TABLET PO ×2 (13:48→21:01)
[2024-07-27 14:36] VITALS: BP 152/79; PULSE 81; O2SAT 97
[2024-07-27] MEDS: Gabapentin 300 MG CAPSULE 600 MG PO ×2 (16:08→20:59)
[2024-07-27 19:41] VITALS: BP 117/73; PULSE 113; TEMP 37.6; O2SAT 99
[2024-07-27] MEDS: QUEtiapine Fumarate 50 MG TABLET PO (20:59)
[2024-07-27] MEDS: Cyclobenzaprine HCl 10 MG TABLET PO (21:00)
[2024-07-27] MEDS: Tamsulosin HCL 0.4 MG CAPSULE PO (21:00)
[2024-07-27 22:00] VITALS: BP 117/73; PULSE 113; TEMP 37.6; O2SAT 99
[2024-07-27] MEDS: diphenhydrAMINE HCL 25 MG CAPSULE 50 MG PO (23:51)
[2024-07-28] MEDS: Omeprazole 20 MG CAPSULE.DR PO (07:14)
[2024-07-28 08:00] VITALS: BP 122/70; PULSE 92; RESP 16; TEMP 36.6; O2SAT 97
[2024-07-28] MEDS: Loratadine 10 MG TABLET PO (09:43)
[2024-07-28] MEDS: Gabapentin 300 MG CAPSULE 600 MG PO ×4 (09:43→21:51)
[2024-07-28] MEDS: DULoxetine HCl 20 MG CAPSULE.DR 40 MG PO (09:43)
[2024-07-28] MEDS: Cyclobenzaprine HCl 5 MG TABLET PO ×2 (09:44→17:10)
[2024-07-28] MEDS: HYDROmorphone HCl 2 MG TABLET PO ×2 (09:44→17:10)
[2024-07-28] MEDS: Multivitamin TABLET 1 TAB PO (09:44)
[2024-07-28] MEDS: Sertraline HCL 25 MG TABLET PO (09:44)
[2024-07-28] MEDS: Apixaban 5 MG TABLET PO ×2 (09:45→21:51)
[2024-07-28] MEDS: cefuroxime axetiL 500 MG TABLET PO ×2 (09:45→21:50)
[2024-07-28] MEDS: Aspirin 81 MG TAB.CHEW PO (09:45)
[2024-07-28] MEDS: Magnesium Oxide 400 MG TABLET PO ×2 (09:45→21:51)
[2024-07-28] MEDS: Docusate Sodium 100 MG CAPSULE PO ×2 (09:45→21:50)
[2024-07-28] MEDS: Hydroxychloroquine Sulfate 200 MG TABLET PO ×2 (09:45→21:51)
[2024-07-28] MEDS: Doxycycline Monohydrate 100 MG CAPSULE PO ×2 (09:48→21:50)
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
[2024-07-28 20:00] VITALS: BP 162/99; PULSE 120; RESP 16; TEMP 35.8; O2SAT 98
[2024-07-28] MEDS: Tamsulosin HCL 0.4 MG CAPSULE PO (21:51)
[2024-07-28] MEDS: Cyclobenzaprine HCl 10 MG TABLET PO (21:51)
[2024-07-28 22:00] VITALS: BP 162/99; PULSE 120; RESP 16; TEMP 35.8; O2SAT 98
[2024-07-28] MEDS: Acetaminophen 325 MG TABLET 650 MG PO (22:00)
[2024-07-28] MEDS: QUEtiapine Fumarate 50 MG TABLET PO (22:12)
[2024-07-29 01:10] VITALS: BP 124/71; PULSE 107
[2024-07-29] MEDS: HYDROmorphone HCl 2 MG TABLET PO ×3 (01:10→18:02)
[2024-07-29] MEDS: Doxepin HCl 10 MG CAPSULE PO (01:10)
[2024-07-29 07:52] VITALS: BP 106/64; PULSE 103; RESP 16; TEMP 36.4; O2SAT 98
[2024-07-29] MEDS: Tiotropium Bromide 2.5 mcg 1 PUFF/2.5 MCG MIST.INHAL 2 PUFF INHALE (08:52)
[2024-07-29] MEDS: Sertraline HCL 25 MG TABLET PO (08:52)
[2024-07-29] MEDS: DULoxetine HCl 20 MG CAPSULE.DR 40 MG PO (08:53)
[2024-07-29] MEDS: Loratadine 10 MG TABLET PO (08:53)
[2024-07-29] MEDS: Hydroxychloroquine Sulfate 200 MG TABLET PO ×2 (08:53→22:12)
[2024-07-29] MEDS: Doxycycline Monohydrate 100 MG CAPSULE PO ×2 (08:53→22:11)
[2024-07-29] MEDS: cefuroxime axetiL 500 MG TABLET PO ×2 (08:54→22:11)
[2024-07-29] MEDS: Magnesium Oxide 400 MG TABLET PO ×2 (08:54→22:11)
[2024-07-29] MEDS: Cyclobenzaprine HCl 5 MG TABLET PO (08:55)
[2024-07-29] MEDS: Gabapentin 300 MG CAPSULE 600 MG PO ×4 (08:56→22:10)
[2024-07-29] MEDS: Docusate Sodium 100 MG CAPSULE PO ×2 (08:56→22:12)
[2024-07-29] MEDS: Omeprazole 20 MG CAPSULE.DR PO (08:56)
[2024-07-29] MEDS: Multivitamin TABLET 1 TAB PO (08:56)
[2024-07-29] MEDS: Apixaban 5 MG TABLET PO ×2 (08:56→22:12)
[2024-07-29] MEDS: Aspirin 81 MG TAB.CHEW PO (08:56)
[2024-07-29] MEDS: Acetaminophen 325 MG TABLET 650 MG PO (12:31)
--- NOTE | 2024-07-29 12:52 | PM.EVENT ---
Event Note Date of Service: 07/29/24 Event Note: Notified by nursing that patient is reporting pain, he was recently started on Flexeril p.r.n. dosing, Cymbalta, gabapentin was changed to q.i.d. dosing. Continue to wean hydromorphone as this is recommended for short-term acute pain. Per review of notes patient's pain is neuropathic in nature, we will increase Tylenol to 975 as needed. Time Spent With Patient Time: Total time managing care of this patient today ____ minutes.
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
[2024-07-29 22:00] VITALS: BP 123/78; PULSE 103; RESP 15; TEMP 37.9; O2SAT 99
[2024-07-29] MEDS: Tamsulosin HCL 0.4 MG CAPSULE PO (22:11)
[2024-07-29] MEDS: QUEtiapine Fumarate 50 MG TABLET PO (22:11)
[2024-07-29] MEDS: Cyclobenzaprine HCl 10 MG TABLET PO (22:12)
[2024-07-29] MEDS: Acetaminophen 325 MG TABLET 975 MG PO (22:16)
[2024-07-30] MEDS: Cyclobenzaprine HCl 5 MG TABLET PO (00:59)
[2024-07-30] MEDS: HYDROmorphone HCl 2 MG TABLET PO ×3 (01:00→21:42)
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
[2024-07-30] MEDS: Omeprazole 20 MG CAPSULE.DR PO (06:50)
[2024-07-30 08:05] VITALS: BP 123/70; PULSE 95; RESP 16; TEMP 37.1; O2SAT 96
[2024-07-30] MEDS: Aspirin 81 MG TAB.CHEW PO (08:48)
[2024-07-30] MEDS: Docusate Sodium 100 MG CAPSULE PO ×2 (08:48→21:41)
[2024-07-30] MEDS: Magnesium Oxide 400 MG TABLET PO ×2 (08:48→21:43)
[2024-07-30] MEDS: Apixaban 5 MG TABLET PO ×2 (08:48→21:43)
[2024-07-30] MEDS: Hydroxychloroquine Sulfate 200 MG TABLET PO ×2 (08:48→21:42)
[2024-07-30] MEDS: DULoxetine HCl 20 MG CAPSULE.DR 40 MG PO (08:48)
[2024-07-30] MEDS: Tiotropium Bromide 2.5 mcg 1 PUFF/2.5 MCG MIST.INHAL 2 PUFF INHALE (08:48)
[2024-07-30] MEDS: Multivitamin TABLET 1 TAB PO (08:48)
[2024-07-30] MEDS: Doxycycline Monohydrate 100 MG CAPSULE PO ×2 (08:48→21:43)
[2024-07-30] MEDS: cefuroxime axetiL 500 MG TABLET PO ×2 (08:48→21:42)
[2024-07-30] MEDS: Loratadine 10 MG TABLET PO (08:48)
[2024-07-30] MEDS: Gabapentin 300 MG CAPSULE 600 MG PO ×4 (08:48→21:42)
[2024-07-30] MEDS: Sertraline HCL 25 MG TABLET PO (08:48)
[2024-07-30] MEDS: Cyclobenzaprine HCl 10 MG TABLET PO (21:41)
[2024-07-30] MEDS: QUEtiapine Fumarate 50 MG TABLET PO (21:42)
[2024-07-30] MEDS: Tamsulosin HCL 0.4 MG CAPSULE PO (21:42)
[2024-07-30 22:00] VITALS: BP 130/65; PULSE 100; RESP 18; TEMP 36.8; O2SAT 97
[2024-07-31] MEDS: Acetaminophen 325 MG TABLET 975 MG PO ×2 (00:21→21:44)
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
[2024-07-31] MEDS: Omeprazole 20 MG CAPSULE.DR PO (06:48)
[2024-07-31 08:50] VITALS: BP 118/62; PULSE 81; RESP 16; TEMP 37.1; O2SAT 95
--- NOTE | 2024-07-31 08:51 | PC.NURSE ---
approached pt with 9am scheduled medications, pt responded, please come back in like an hour . Will reapproach pt at 945am
[2024-07-31] MEDS: DULoxetine HCl 20 MG CAPSULE.DR 40 MG PO (09:55)
[2024-07-31] MEDS: Gabapentin 300 MG CAPSULE 600 MG PO ×4 (09:55→21:43)
[2024-07-31] MEDS: cefuroxime axetiL 500 MG TABLET PO ×2 (09:55→21:43)
[2024-07-31] MEDS: Tiotropium Bromide 2.5 mcg 1 PUFF/2.5 MCG MIST.INHAL 2 PUFF INHALE (09:56)
[2024-07-31] MEDS: Multivitamin TABLET 1 TAB PO (09:56)
[2024-07-31] MEDS: HYDROmorphone HCl 2 MG TABLET PO ×2 (09:56→21:46)
[2024-07-31] MEDS: Aspirin 81 MG TAB.CHEW PO (09:56)
[2024-07-31] MEDS: Docusate Sodium 100 MG CAPSULE PO ×2 (09:56→21:46)
[2024-07-31] MEDS: Hydroxychloroquine Sulfate 200 MG TABLET PO ×2 (09:56→21:45)
[2024-07-31] MEDS: Doxycycline Monohydrate 100 MG CAPSULE PO (09:56)
[2024-07-31] MEDS: Magnesium Oxide 400 MG TABLET PO ×2 (09:56→21:43)
[2024-07-31] MEDS: Loratadine 10 MG TABLET PO (09:56)
[2024-07-31] MEDS: Sertraline HCL 25 MG TABLET PO (09:56)
[2024-07-31] MEDS: Apixaban 5 MG TABLET PO ×2 (09:56→21:46)
[2024-07-31 20:05] VITALS: BP 140/90; PULSE 108; RESP 15; TEMP 37.2; O2SAT 99
[2024-07-31] MEDS: Cyclobenzaprine HCl 10 MG TABLET PO (21:45)
[2024-07-31] MEDS: Tamsulosin HCL 0.4 MG CAPSULE PO (21:46)
[2024-07-31] MEDS: QUEtiapine Fumarate 25 MG TABLET 75 MG PO (21:51)
[2024-08-01] MEDS: Acetaminophen 325 MG TABLET 975 MG PO (02:18)
[2024-08-01] MEDS: Cyclobenzaprine HCl 5 MG TABLET PO (02:19)
[2024-08-01] MEDS: Omeprazole 20 MG CAPSULE.DR PO (07:27)
[2024-08-01] MEDS: Tiotropium Bromide 2.5 mcg 1 PUFF/2.5 MCG MIST.INHAL 2 PUFF INHALE (08:51)
[2024-08-01] MEDS: Loratadine 10 MG TABLET PO (08:52)
[2024-08-01] MEDS: Hydroxychloroquine Sulfate 200 MG TABLET PO (08:52)
[2024-08-01] MEDS: cefuroxime axetiL 500 MG TABLET PO (08:52)
[2024-08-01] MEDS: Gabapentin 300 MG CAPSULE 600 MG PO ×2 (08:52→13:01)
[2024-08-01] MEDS: Apixaban 5 MG TABLET PO (08:52)
[2024-08-01] MEDS: Sertraline HCL 25 MG TABLET PO (08:52)
[2024-08-01] MEDS: Magnesium Oxide 400 MG TABLET PO (08:52)
[2024-08-01] MEDS: DULoxetine HCl 20 MG CAPSULE.DR 40 MG PO (08:52)
[2024-08-01] MEDS: Aspirin 81 MG TAB.CHEW PO (08:52)
[2024-08-01] MEDS: Multivitamin TABLET 1 TAB PO (08:52)
[2024-08-01] MEDS: Docusate Sodium 100 MG CAPSULE PO (08:52)
[2024-08-01] MEDS: HYDROmorphone HCl 2 MG TABLET PO (08:56)
[2024-08-01 10:00] VITALS: BP 131/60; PULSE 84; RESP 16; TEMP 36.3; O2SAT 97
--- NOTE | 2024-08-01 14:35 | PC.NURSE ---
Pt declined wound care assessment and dressing change. They did it late last night. It's fine!. It,s on and its not leaking . Pt educated on proper wound care and still declines assessment and dressing change
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
== END 2024-08-01 15:40 | disposition home or self-care (01) | DRG 885 ==
LOC: HO.ED 07-21 20:18 → HO.PM5 07-21 22:20
PROVIDERS: Internal Medicine; Nurse Practitioner Family; Physician Assistant; Psychiatry & Neurology Psychiatry; Social Worker; Admitting Provider Clinical Nurse Specialist Psychiatric/Mental Health, Adult; Emergency Provider Emergency Medicine; Visit Provider Clinical Nurse Specialist Psychiatric/Mental Health, Adult
DX: F33.9 Major depressive disorder, recurrent, unspecified (principal); J18.0 Bronchopneumonia, unspecified organism; F19.90 Other psychoactive substance use, unspecified, uncomplicated; F17.210 Nicotine dependence, cigarettes, uncomplicated; T44.6X2A Poisoning by alpha-adrenoreceptor antagonists, intentional self-harm, initial encounter; Z71.6 Tobacco abuse counseling; F43.0 Acute stress reaction; T81.89XA Other complications of procedures, not elsewhere classified, initial encounter; Y83.8 Other surgical procedures as the cause of abnormal reaction of the patient, or of later complication, without mention of misadventure at the time of the procedure; Z79.01 Long term (current) use of anticoagulants; Z86.718 Personal history of other venous thrombosis and embolism; Z20.822 Contact with and (suspected) exposure to COVID-19; Z79.82 Long term (current) use of aspirin; Z79.899 Other long term (current) drug therapy
CPT/HCPCS: 0241U; 36415; 70450; 71045; 73552; 80048; 80053; 80061; 80076; 80143; 80179; 80307; 81001; 82140; 82607; 82746; 82803; 83036; 83605; 83735; 84439; 84443; 85025; 87040; 87633; 93005; 97161; 99285; S9485

== ENCOUNTER → 2024-07-20 12:39 | Outpatient (BNV) | payer OTHER, SELFPAY | PROVIDERS: Emergency Provider Emergency Medicine Emergency Medical Services; Visit Provider Radiology Diagnostic Radiology | DX: G93.89 Other specified disorders of brain (principal); M79.89 Other specified soft tissue disorders | CPT/HCPCS: 70450; 73552 ==

== ENCOUNTER → 2024-07-20 12:39 | Outpatient (BNV) | payer OTHER, SELFPAY | PROVIDERS: Emergency Provider Emergency Medicine Emergency Medical Services; Visit Provider Internal Medicine Cardiovascular Disease | DX: R00.0 Tachycardia, unspecified (principal) | CPT/HCPCS: 93010 ==

== ENCOUNTER → 2024-07-20 13:27 | Outpatient (BNV) | payer OTHER, SELFPAY | PROVIDERS: Emergency Provider Emergency Medicine Emergency Medical Services; Visit Provider Physician Assistant Surgical | DX: T14.8XXA Other injury of unspecified body region, initial encounter (principal) | CPT/HCPCS: 99222 ==

== ENCOUNTER 2024-07-21 19:57 | Outpatient (BNV) | payer OTHER, SELFPAY | END 2024-07-24 18:43 | PROVIDERS: Admitting Provider Clinical Nurse Specialist Psychiatric/Mental Health, Adult; Emergency Provider Emergency Medicine; Visit Provider Radiology Diagnostic Radiology | DX: R91.8 Other nonspecific abnormal finding of lung field (principal) | CPT/HCPCS: 71045 ==

== ENCOUNTER → 2024-07-21 19:57 | Outpatient (BNV) | payer OTHER, SELFPAY | PROVIDERS: Admitting Provider Clinical Nurse Specialist Psychiatric/Mental Health, Adult; Emergency Provider Emergency Medicine; Visit Provider Psychiatry & Neurology Psychiatry | DX: F33.2 Major depressive disorder, recurrent severe without psychotic features (principal); R45.851 Suicidal ideations; F19.90 Other psychoactive substance use, unspecified, uncomplicated; F43.0 Acute stress reaction; T14.8XXA Other injury of unspecified body region, initial encounter | CPT/HCPCS: 99232 ==

== ENCOUNTER → 2024-07-21 19:57 | Outpatient (BNV) | payer OTHER, SELFPAY | PROVIDERS: Admitting Provider Clinical Nurse Specialist Psychiatric/Mental Health, Adult; Emergency Provider Emergency Medicine; Visit Provider Nurse Practitioner Family | DX: S71.131A Puncture wound without foreign body, right thigh, initial encounter (principal) | CPT/HCPCS: 99232; 99499 ==